=== PATIENT | male | born 1960 | race African-American/Black ===

== ENCOUNTER 2019-11-15 03:58 | Emergency (ER) | payer SELFPAY ==
[~2019-11-15] VITALS: Ht 165.1 cm; Wt 111.4 kg
[2019-11-15] MEDS ORDERED: NORCO 325 MG-51 TAB PO (04:28)
[2019-11-15] MEDS ORDERED: AMOXICILLIN 8751 TAB PO (04:28)
[2019-11-15 05:00] VITALS: BP 142/70; PULSE 76; TEMP 97.6
== END 2019-11-15 05:00 | disposition home or self-care (01) ==
LOC: COL.ER 03:58
DX: M27.2 Inflammatory conditions of jaws (principal); E11.9 Type 2 diabetes mellitus without complications; I10 Essential (primary) hypertension; Z79.84 Long term (current) use of oral hypoglycemic drugs
CPT/HCPCS: J0696